=== PATIENT | female | born 1985 | race African-American/Black ===

== ENCOUNTER 2019-03-08 22:02 | Emergency (ER) | payer MEDICAID ==
[~2019-03-08] VITALS: Ht 170.2 cm; Wt 65.9 kg
[2019-03-08 22:07] VITALS: BP 145/85
[2019-03-08] MEDS ORDERED: SULFAMETHOX/TRIMETH DS 800-160 MG/TABLET PO ONE (23:00)
[2019-03-08] MEDS ORDERED: KETOROLAC TROMETHAMINE 60 MG/2 ML VIAL IM ONE (23:00)
[2019-03-08] MEDS ORDERED: POVIDONE-IODINE 10% 15 ML SOLUTION UD TP ONE (23:00)
[2019-03-08] MEDS ORDERED: CEPHALEXIN MONOHYDRATE 500 MG CAPSULE PO ONE (23:00)
[2019-03-08] MEDS ORDERED: BACITRACIN 0.9 GM PACKET OINTMENT TP ONE (23:00)
== END 2019-03-08 23:57 | disposition home or self-care (01) ==
LOC: EMS 22:03
DX: L02.11 Cutaneous abscess of neck (principal); F17.210 Nicotine dependence, cigarettes, uncomplicated
CPT/HCPCS: 96372; 99283; 99406; J1885

== ENCOUNTER 2022-01-11 20:53 | Emergency (ER) | payer MEDICAID, OTHER ==
[~2022-01-11] VITALS: Ht 172.7 cm; Wt 68.2 kg
[2022-01-11 22:32] VITALS: BP 103/73
[2022-01-11] MEDS ORDERED: ACETAMINOPHEN 500 MG TABLET PO ONE (22:45)
[2022-01-11] MEDS ORDERED: BACITRACIN 0.9 GM PACKET OINTMENT TP ONE (22:45)
[2022-01-11] MEDS ORDERED: PERTUSS(ACELL),DIPH,TET VAC/PF 0.5 ML SYRINGE IM. ONE (22:45)
== END 2022-01-12 04:59 | disposition left against medical advice (07) ==
LOC: EMS 21:09
DX: T40.601A Poisoning by unspecified narcotics, accidental (unintentional), initial encounter (principal); M25.512 Pain in left shoulder; Y92.89 Other specified places as the place of occurrence of the external cause
CPT/HCPCS: 71045; 90471; 90715; 93005; 99284; 36415-L1; 36415-TC

== ENCOUNTER 2022-08-06 13:17 | Emergency (ER) | payer OTHER ==
[~2022-08-06] VITALS: Ht 170.2 cm; Wt 59.1 kg
[2022-08-06 17:50] LABS: APPEARANCE,URINE HAZY (CLEAR); BILIRUBIN,URINE NEGATIVE (NEGATIVE); GLUCOSE, URINE (UA) NEGATIVE (NEGATIVE); KETONES,URINE NEGATIVE (NEGATIVE); LEUKOCYTE ESTERASE ,URINE SMALL (NEGATIVE); NITRATE,URINE POSITIVE (NEGATIVE); OCCULT BLOOD,URINE NEGATIVE (NEGATIVE); PH,URINE 5.5 (5.0-8.0); PROTEIN,URINE TRACE mg/dL (NEGATIVE); SPECIFIC GRAVITIY, URINE 1.025 (1.003-1.030); UROBILINOGEN,URINE <=1.0 mg/dL (<=1.0)
[2022-08-06 17:57] LABS: AMPHET/METH SCREEN,URINE POSITIVE (NEGATIVE); BARBITURATE SCREEN, URINE NEGATIVE (NEGATIVE); BENZODIAZEPINES SCREEN,URINE NEGATIVE (NEGATIVE); CANNABINOID SCREEN,URINE NEGATIVE (NEGATIVE); COCAINE SCREEN,URINE NEGATIVE (NEGATIVE); METHADONE SCREEN, URINE NEGATIVE (NEGATIVE); OPIATE SCREEN,URINE NEGATIVE (NEGATIVE)
[2022-08-06 17:59] LABS: PHENCYCLIDINE SCREEN,URINE NEGATIVE (NEGATIVE)
[2022-08-06 18:17] LABS: BACTERIA,URINE Many /HPF (None Seen); RBC,URINE None Seen /HPF (0-2); SQUAMOUS EPITHELIAL CELL,UR Few /LPF (None Seen)
[2022-08-06 21:07] VITALS: BP 140/70
[2022-08-06] MEDS ORDERED: CEPH-558 PO (21:14)
== END 2022-08-06 21:41 | disposition home or self-care (01) ==
LOC: EMS 13:27
DX: F41.9 Anxiety disorder, unspecified (principal); F15.10 Other stimulant abuse, uncomplicated; N39.0 Urinary tract infection, site not specified; F43.10 Post-traumatic stress disorder, unspecified
CPT/HCPCS: 80307; 81001; 84703; 87086; 87186; 99284

== ENCOUNTER 2023-07-04 20:41 | Emergency (ER) | payer MEDICAID, OTHER ==
[~2023-07-04] VITALS: Ht 170.2 cm; Wt 62.0 kg
[~2023-07-04 20:41] MED LIST: CEPH-558 PO
[2023-07-04 22:10] VITALS: BP 140/80; PULSE 92; RESP 17; TEMP 98.3
[2023-07-04] MEDS ORDERED: OxyCODONE HCL/ACETAMINOPHEN 5-325 MG TABLET PO ONE (22:15)
[2023-07-04] MEDS ORDERED: KETOROLAC TROMETHAMINE 60 MG/2 ML VIAL IM ONE (22:15)
[2023-07-04] MEDS ORDERED: ONDANSETRON HCL 4 MG TABLET PO ONE (22:15)
[2023-07-04] MEDS ORDERED: IBUP-1492 PO (22:40)
== END 2023-07-04 23:56 | disposition home or self-care (01) ==
LOC: EMS 20:43
DX: R51.9 Headache, unspecified (principal); F17.210 Nicotine dependence, cigarettes, uncomplicated
CPT/HCPCS: 99283; 96372; J1885; Q0162